=== PATIENT | female | born 1975 | race American Indian/Alaskan Native ===

== ENCOUNTER 2022-03-11 17:24 | Emergency (ER) | payer OTHER ==
[2022-03-11 17:55] VITALS: BP 106/59
--- NOTE | 2022-03-11 19:58 | XRay Report ---
XR chest routine 2V INDICATION / CLINICAL INFORMATION: cough. COMPARISON: None available. FINDINGS: SUPPORT DEVICES: None. HEART /PULMONARY VASCULATURE: No significant abnormality. LUNGS / PLEURA: No significant pulmonary or pleural abnormality. No pneumothorax. ADDITIONAL FINDINGS: No significant additional findings. IMPRESSION: 1. No acute findings. Signer Name: Juancarlos Issa MD Signed: 03/11/2022 7:54 PM Workstation Name: [id number]
--- NOTE | 2022-03-11 20:31 | Emergency Department Report ---
- General Chief Complaint: Upper Respiratory Infection Stated Complaint: TESTED POS FOR COVID 06/10/ BRONCHITIS Source: patient Mode of arrival: Ambulatory Limitations: No Limitations - History of Present Illness Initial Comments: Patient is a 46-year-old -Togol[place] female with no past medical history presents to the ED with complaint of acute onset persistent nasal and sinus congestion, persistent dry cough for the last 10 days. Patient states that she tested positive for COVID-19 viral infection 10 days ago and recovered fully but has continued to have persistent dry cough. Patient states that she was advised to come to the ED for evaluation of her cough by her employer before she can go back to work. Patient denies dizziness, syncope, fever, chills, sore throat, nausea and vomiting, diarrhea, abdominal pain, headache, change in vision or palpitations. MD Complaint: cough, rhinorrhea, nasal congestion, sinus pain -: days(s) (10) Severity: moderate Severity scale (0 -10): 4 Quality: dull, aching Consistency: intermittent Improves With: nothing Worsens With: nothing Context: other (Recent diagnosis of COVID-19 10 days ago) Associated Symptoms: denies other symptoms, rhinorrhea, nasal congestion, cough. denies: diaphoresis, headache, sore throat, stiff neck, shortness of breath, abdominal pain, nausea, vomiting, diarrhea, rash, confusion, weight loss, epistaxis, ear pain, other Treatments Prior to Arrival: "cold medicine" - Related Data Allergies Allergy/AdvReac Type Severity Reaction Status Date / Time No Known Allergies Allergy Verified 03/11/22 17:55 ED Review of Systems ROS: Stated complaint: TESTED POS FOR COVID 06/10/ BRONCHITIS Other details as noted in HPI Constitutional: denies: chills, fever Eyes: denies: eye pain, eye discharge, vision change ENT: congestion. denies: ear pain, throat pain Respiratory: cough. denies: shortness of breath, wheezing Cardiovascular: denies: chest pain, palpitations Endocrine: no symptoms reported Gastrointestinal: denies: abdominal pain, nausea, vomiting, diarrhea Genitourinary: denies: urgency, dysuria, discharge Musculoskeletal: denies: back pain, joint swelling, arthralgia Skin: denies: rash, lesions Neurological: denies: headache, weakness, paresthesias Psychiatric: denies: anxiety, depression Hematological/Lymphatic: denies: easy bleeding, easy bruising ED Past Medical Hx - Past Medical History Previous Medical History?: No Additional medical history: Covid 03/01/2022 - Surgical History Additional Surgical History: hernia repair , tubal ligation - Social History Smoking Status: Never Smoker ED Physical Exam - General Limitations: No Limitations General appearance: alert, in no apparent distress - Head Head exam: Present: atraumatic, normocephalic, normal inspection - Eye Eye exam: Present: normal appearance, PERRL, EOMI Pupils: Present: normal accommodation - ENT ENT exam: Present: normal orophraynx, mucous membranes moist, TM's normal bilaterally, normal external ear exam, other (Grossly congested nasal passages) - Neck Neck exam: Present: normal inspection, full ROM. Absent: tenderness - Respiratory Respiratory exam: Present: normal lung sounds bilaterally. Absent: respiratory distress, wheezes, rales, rhonchi, chest wall tenderness, accessory muscle use, decreased breath sounds, prolonged expiratory - Cardiovascular Cardiovascular Exam: Present: regular rate, normal rhythm, normal heart sounds. Absent: systolic murmur, diastolic murmur, rubs, gallop - GI/Abdominal GI/Abdominal exam: Present: soft, normal bowel sounds. Absent: tenderness, guarding, rebound, hyperactive bowel sounds, hypoactive bowel sounds, organomegaly, mass, bruit - Extremities Exam Extremities exam: Present: normal inspection, full ROM, normal capillary refill. Absent: tenderness - Back Exam Back exam: Present: normal inspection, full ROM. Absent: tenderness, CVA tenderness (R), CVA tenderness (L), muscle spasm, paraspinal tenderness, vertebral tenderness - Neurological Exam Neurological exam: Present: alert, oriented X3, CN II-XII intact, normal gait, reflexes normal - Psychiatric Psychiatric exam: Present: normal affect, normal mood - Skin Skin exam: Present: warm, dry, intact, normal color. Absent: rash ED Course Vital Signs 03/11/22 17:50 Temperature 98.3 F Pulse Rate 67 Respiratory 16 Rate Blood Pressure 106/59 O2 Sat by Pulse 99 Oximetry ED Medical Decision Making - Radiology Data Radiology results: report reviewed, image reviewed [facility] [address] [place] [address] XRay Report Signed Patient: GATITO HERNANDEZ MR#: [id number] : 1975 Acct:[id number] Age/Sex: 46 / F ADM Date: 03/11/22 Loc: ED Attending Dr: Ordering Physician: MICHELLE INMAN Date of Service: 03/11/22 Procedure(s): XR chest routine 2V Accession Number(s): [id number] cc: MICHELLE INMAN Fluoro Time In Minutes: XR chest routine 2V INDICATION / CLINICAL INFORMATION: cough. COMPARISON: None available. FINDINGS: SUPPORT DEVICES: None. HEART /PULMONARY VASCULATURE: No significant abnormality. LUNGS / PLEURA: No significant pulmonary or pleural abnormality. No pneumothorax. ADDITIONAL FINDINGS: No significant additional findings. IMPRESSION: 1. No acute findings. Signer Name: Leeanne Issa MD Signed: 03/11/2022 7:54 PM Workstation Name: [id number] Transcribed By: MED Dictated By: LEEANNE ISSA MD Electronically Authenticated By: LEEANNE ISSA MD Signed Date/Time: 03/11/221953 DD/ 53 TD/TT: - Medical Decision Making This is a 46-year-old -[place]og[place] female with no past medical history presents to the ED with complaint of acute onset persistent nasal and sinus congestion, persistent dry cough for the last 10 days. Patient states that she tested positive for COVID-19 viral infection 10 days ago and recovered fully but has continued to have persistent dry cough. Patient states that she was advised to come to the ED for evaluation of her cough by her employer before she can go back to work. In the ED, patient is alert and oriented x3 and is not in any distress. Chest x-ray showed no acute cardiopulmonary abnormalities or pneumonitis. Patient will discharge home advised to continue taking the previously prescribed medication for her symptoms and to follow-up with her primary care physician in 7 to 10 days for reevaluation or return to the ED immediately if symptoms get worse. - Differential Diagnosis Bronchitis; URI; sinusitis; pneumonia; Critical care attestation.: If time is entered above; I have spent that time in minutes in the direct care of this critically ill patient, excluding procedure time. ED Disposition Clinical Impression: Acute upper respiratory infection Acute bronchitis Qualifiers: Bronchitis organism: other organism Qualified Code(s): J20.8 - Acute bronchitis due to other specified organisms Disposition: HOME / SELF CARE / HOMELESS Is pt being admited?: No Does the pt Need Aspirin: No Condition: Stable Instructions: Acute Bronchitis (ED), Upper Respiratory Infection, Adult, [id number], Viral Respiratory Infection, [id number], Cough, Adult, [id number]-ri-Sjix, Acute Bronchitis, Adult, [id number] Additional Instructions: Continue taking the previously prescribed medication for cough and upper respiratory infection. Drink plenty of fluids, follow-up with your primary care physician in 7 to 10 days for reevaluation. You may resume work or professional activities without any restrictions. Referrals: DENNY HARRIS MD [Primary Care Provider] - 7-10 days Forms: Work/School Release Form(ED) Time of Disposition: 20:31 Print Language: NIGERIEN
== END 2022-03-11 20:50 | disposition home or self-care (01) ==
LOC: ED 17:24
DX: J06.9 Acute upper respiratory infection, unspecified (principal); J20.9 Acute bronchitis, unspecified; Z98.890 Other specified postprocedural states
CPT/HCPCS: 71046; 99283